=== PATIENT | female | born 1970 | race Caucasian/White ===

== ENCOUNTER 2018-04-03 16:32 | Emergency (ER) | payer OTHER ==
[2018-04-03 16:48] VITALS: BP 127/70; PULSE 85; TEMP 98; BMI 29.9
--- NOTE | 2018-04-03 16:50 | PDOC ---
Rapid Medical Evaluation Chief Complaint: Chronic pain Medical Evaluation: I have performed a brief in-person evaluation of this patient. The patient presents with a chief complaint of: L flank pain x 1 week; denies fever, sob, cp, abd pain, n/v, urinary complaints; denies any medical problems or prior surgeries Pertinent physical exam findings: In NAD, no vertebral spine TTP, no paravertebral muscle TTP, no CVA tenderness; abdomen soft, ND I have ordered the following: UA The patient will proceed to the ED for further evaluation. 04/03/18 16:46
[2018-04-03 17:28] LABS: URINE APPEARANCE CLEAR; URINE BILIRUBIN NEGATIVE (<2.0 mg/dL); URINE COLOR AMBER; URINE GLUCOSE (UA) NEGATIVE (NEGATIVE); URINE KETONE TRACE (NEGATIVE); URINE LEUK ESTERASE TRACE (NEGATIVE); URINE NITRITE NEGATIVE (NEGATIVE); URINE PROTEIN 1+ (NEGATIVE)
[2018-04-03 18:13] LABS: EPI CELLS RARE /HPF (FEW); URINE HYALINE CAST 9 /lpf; URINE MUCUS MODERATE
[2018-04-03] MEDS ORDERED: KETOROLAC TROMETHAMINE 60 MG/2 ML VIAL IM ONE (19:21)
[2018-04-03] MEDS ORDERED: KETOROLAC TROMETHAMINE 60 MG/2 ML VIAL ONE (19:26)
--- NOTE | 2018-04-03 20:00 | PDOC ---
History of Present Illness - General Chief Complaint: Back Pain Stated Complaint: BACK PAIN Time Seen by Provider: 04/03/18 16:52 - History of Present Illness Initial Comments: 04/03/18 19:56 47-year-old female without comorbidities presents for evaluation of right-sided upper back pain without radicular symptoms times one week. She had a similar episode on the left side about a month ago which resolved. Past History - Past Medical History Allergies/Adverse Reactions: Allergies Allergy/AdvReac Type Severity Reaction Status Date / Time No Known Allergies Allergy Verified 04/03/18 16:49 Home Medications: Ambulatory Orders Cyclobenzaprine HCl [Flexeril 10 mg] 10 mg PO HS PRN #10 tablet 04/03/18 Ibuprofen [Motrin -] 600 mg PO TID #30 tablet 04/03/18 COPD: No - Suicide/Smoking/Psychosocial Hx Smoking History: Never smoked Have you smoked in the past 12 months: No Information on smoking cessation initiated: No Hx Alcohol Use: No Drug/Substance Use Hx: No Review of Systems - Review of Systems Constitutional: No: Fever : No: Dysuria Musculoskeletal: Yes: Back Pain *Physical Exam - Vital Signs Last Vital Signs Temp Pulse Resp BP Pulse Ox 98.0 F 85 16 127/70 96 04/03/18 16:45 04/03/18 16:45 04/03/18 16:45 04/03/18 16:45 04/03/18 16:45 - Physical Exam Comments: 04/03/18 19:56 HEAD: NC/AT EYES: Conjuntiva clear Ears: Canals and TM's normal NOSE: No d/c THROAT: Moist mucous membrances, oral pharanx clear, uvula midline NECK: Supple without adenopathy CARDIAC: S1 S2 LUNGS: CTA Full and Equal breath sounds ABDOMEN: Soft NT ND MS: Full ROM in all joints without edema NEUROLOGIC: No gross sensory or motor deficits, NVID SKIN: Normal color and temperature no lesions or rashes The rectal lumbar spine skin color and temperature are normal there is no midline tenderness. 5 out of 5 strength in bilateral upper and lower extremities. There is tenderness about the right side of the parathoracic musculature in the area of the rhomboids no gross sensorimotor deficits. Neurovascularly intact Moderate Sedation - Procedure Monitoring Vital Signs: Procedure Monitoring Vital Signs Temperature 98.0 F 04/03/18 16:45 Pulse Rate 85 04/03/18 16:45 Respiratory Rate 16 04/03/18 16:45 Blood Pressure 127/70 04/03/18 16:45 O2 Sat by Pulse Oximetry (%) 96 04/03/18 16:45 ED Treatment Course - ADDITIONAL ORDERS Additional order review: Laboratory Results 04/03/18 04/03/18 17:00 17:00 Urine Color Ann Urine Appearance Clear Urine pH 5.0 Ur Specific Marshall 1.026 Urine Protein 1+ H Urine Glucose (UA) Negative Urine Ketones Trace H Urine Blood Negative Urine Nitrite Negative Urine Bilirubin Negative Urine Urobilinogen 2.0 H Ur Leukocyte Esterase Trace Urine WBC (Auto) 8 Urine RBC (Auto) 6 Ur Epithelial Cells Rare Hyaline Casts 9 Urine Mucus Moderate Urine HCG, Qual Negative - Medications Given in the ED: ED Medications Discontinued Medications Generic Name Dose Route Start Last Admin Trade Name Freq PRN Reason Stop Dose Admin Ketorolac Tromethamine 60 mg 04/03/18 19:21 04/03/18 19:34 Toradol Injection - IM 04/03/18 19:22 60 mg ONCE ONE Administration *DC/Admit/Observation/Transfer Diagnosis at time of Disposition: Back pain - Discharge Dispostion Disposition: HOME Condition at time of disposition: Stable Decision to Admit order: No - Prescriptions Prescriptions: Cyclobenzaprine HCl [Flexeril 10 mg] 10 mg PO HS PRN #10 tablet PRN Reason: Muscle Spasms Ibuprofen [Motrin -] 600 mg PO TID #30 tablet - Referrals Referrals: Otilio Dye MD [Staff Physician] - - Patient Instructions Printed Discharge Instructions: Thoracic Back Pain, DI for Thoracic Back Pain, DI for Musculoskeletal Pain Additional Instructions: Please discontinue any other anti-inflammatories you may have taken at home. Please take the prescribed medication as directed and Motrin is one tablet 3 times a day with food and the muscle relaxers one tablet before bedtime. This will make you sleepy. Do not take the muscle relaxer in the day. The muscle relaxers will make you sleepy. If the anti-inflammatory bothers her stomach he may discontinue the medication. If she needed additional medication on top of the anti-inflammatory muscle relaxer you may take Tylenol. Please follow-up with spine surgery in 2-3 days for further evaluation and treatment options. Return to the emergency room should symptoms worsen or go unresolved. - Post Discharge Activity
== END 2018-04-03 20:01 | disposition home or self-care (01) ==
LOC: JERFT 16:32
PROC: 3E0233Z Introduction of Anti-inflammatory into Muscle, Percutaneous Approach (ICD-10-PCS; principal; 2018-04-03)
DX: M54.9 Dorsalgia, unspecified (principal)
CPT/HCPCS: 81003; 81015; 84703; 87086; 99281-25